=== PATIENT | female | born 1995 | race Caucasian/White ===

== ENCOUNTER → 2018-06-06 15:58 | Outpatient (CLI) | payer MEDICAID, SELFPAY ==
--- NOTE | 2018-06-06 16:03 | XR_ITS ---
XR hand RT min 3V HISTORY: Posttraumatic pain ITS.REASON: RT HAND PAIN ORDERING PHYSICIAN: Faustino Su MD PATIENT AGE: 22 years COMPARISON: None FINDINGS: Boxer's fracture involving the distal aspect of the fifth metacarpal. Mild anterior and radial angulation of the distal fracture fragment without significant displacement. IMPRESSION: Nondisplaced boxer's fracture fifth metacarpal
== END ==
PROVIDERS: PCP Family Medicine; Visit Provider Family Medicine
DX: M79.641 Pain in right hand (principal)
CPT/HCPCS: 73130

== ENCOUNTER → 2018-06-27 09:51 | Outpatient (CLI) | payer BC, MEDICAID, SELFPAY ==
--- NOTE | 2018-06-27 09:57 | XR_ITS ---
XR hand RT min 3V HISTORY: Follow-up fracture ITS.REASON: right hand boxer fracture ORDERING PHYSICIAN: Tim Valero MD PATIENT AGE: 22 years COMPARISON: 06/06/2018 FINDINGS: Fracture of the distal aspect of the fifth metacarpals once again noted with slight increase in radial angulation of the distal fracture fragment with no significant displacement. No callus formation apparent. IMPRESSION: Slight increase in radial angulation of the distal fracture fragment of the fifth metacarpal
== END ==
PROVIDERS: PCP Family Medicine; Visit Provider Orthopaedic Surgery
DX: S62.91XA Unspecified fracture of right hand, initial encounter for closed fracture (principal)
CPT/HCPCS: 73130

== ENCOUNTER → 2020-07-01 11:18 | Outpatient (CLI) | payer BC, SELFPAY ==
[2020-07-01 12:13] LABS: Basophils # 0.1 K/mm3 (0-0.2); Eosinophils # 0.1 K/mm3 (0.0-0.4); Eosinophils % 2.1 % (0.1-12.0); Hematocrit 44.6 % (37.0-47.0); Hemoglobin 14.6 g/dL (12.2-16.2); Lymphocytes # 2.5 K/mm3 (0.7-4.5); Lymphocytes % 36.9 % (10-50); Mean Corpuscular HGB Conc 32.8 g/dL (31.8-35.4); Mean Corpuscular Hemoglobin 29.8 pg (27.0-31.2); Mean Corpuscular Volume 90.9 fl (81-99); Mean Platelet Volume 10.4 fl (7.4-10.4); Monocytes # 0.3 K/mm3 (0.1-1.0); Monocytes % 4.6 % (1.7-9.3); Neutrophils # 3.8 K/mm3 (1.8-7.8); Neutrophils % 55.4 % (37.0-80.0); Platelet Count 190 K/mm3 (142-424); Red Blood Count 4.91 M/mm3 (4.20-5.40); Red Cell Distribution Width 13.5 % (11.5-17.5); White Blood Count 6.8 K/mm3 (4.8-10.8)
[2020-07-01 14:54] LABS: Strep Scrn Group A (Rapid) Negative (Negative)
== END ==
PROVIDERS: PCP Family Medicine; Visit Provider Nurse Practitioner
DX: Z03.818 Encounter for observation for suspected exposure to other biological agents ruled out (principal)
CPT/HCPCS: 36415; 85025; 87430; U0003

== ENCOUNTER 2020-08-12 17:40 | Emergency (ER) | payer BC, SELFPAY ==
[2020-08-12 17:56] VITALS: BP 108/64; PULSE 74; RESP 16; TEMP 37.1; O2SAT 98; BMI 19.8
--- NOTE | 2020-08-12 18:04 | HMH.EDUTC ---
[facility] [place] Disposition Clinical Impression: Encounter for laboratory testing for COVID-19 virus URI (upper respiratory infection) Qualifiers: URI type: unspecified URI Qualified Code(s): J06.9 - Acute upper respiratory infection, unspecified Disposition: Home, Self-Care Condition on Discharge: Good Instructions: Preventing the Spread of Coronavirus Discharge Instructions, DI for Sinusitis, Sinusitis Additional Instructions: *Monitor Temp, Over the counter Motrin or Tylenol as directed/as needed Tylenol every 4 hours and Motrin every 6 hours (as long as your family doctor has told you that you can take it) for fever or pain. and straight to ER if unable to lower temp less than 101.0 after medication given *Warm salt water gargles may help to soothe the throat *Throat Lozenges *Warm fluids like tea with honey may help to soothe the throat *Sleep elevated *Humidifier/Vaporizer *Flonase 2 sprays in each nostril daily but be aware that it may take 2-3 days before you notice improvement Follow up IMMEDIATELY for new or worsening symptoms or no Noticeable improvement over the next 48-72 hours. 911 for difficulty breathing or swallowing You were tested for today for COVID19 your test result should be back in the next 24-48 hours, you may call to the [facility] to see if your test results are back in the next 48 hours [phone] [facility] hours are 9am-9pm You was given a handout with instructions for Self Quarantine and Self isolation for while you wait on test results and what to do if they are positive If you are positive the Health Dept will be contacting you also Prescriptions: Fluticasone Propionate [Flonase 50mcg nasal spray 16gm] 1 spr NS DAILY #1 bottle Transmission Status: Pending to [facility] Azithromycin [Z-Wilton 250mg Tab] 250 mg PO DIRECTED #6 tab Transmission Status: Pending to [facility] Referrals: Faustino Su MD [Primary Care Provider] - As needed Forms: Work/School Release Time of Disposition: 18:20 Medical Decision Making - Dony Inquiry Pt receiving controlled substance: No Dony was queried for this patient: No Vital Signs: 08/12/20 17:56 Temperature 98.7 F Temperature Source Oral Pulse Rate [Right] 74 Respiratory Rate 16 Blood Pressure [Right Arm] 108/64 L Blood Pressure Mean [Right Arm] 78 Blood Pressure Source [Right Arm] Automatic Cuff Blood Pressure Position [Right Arm] Sitting 02 Sat by Pulse Oximetry 98 Oxygen Delivery Method Room Air - Lab Data Lab results reviewed: Yes: I reviewed the patient's lab results. Orders (Tests/Meds): ORDERS Category Date Time Status Covid-19 Nasal PCR Sendout [facility] 08/12/20 18:[address] [facility] [place] HPI - General Stated complaint: cough fever muscle pain sore throat Time Seen by Provider: 08/12/20 18:04 Mode of Arrival: Ambulatory Source of Information: Patient Limitations: No Limitations Description of Symptoms (Recalled from Triage Doc. by RN): pt advises she woke up this morning running a fever, body aches, headache, sore throat HEENT Symptoms (Recalled from RN notes): Yes (headache, sore throat, body aches) Resp Symptoms (Recalled from RN notes): No Skin Symptoms (Recalled from RN notes): No MS Symptoms (Recalled from RN notes): No Functional Status (Recalled from RN notes): na - History of Present Illness Provider Complaint: Patient state that she has been not feeling well today State that she is having body aches, chills, sinus pain and pressure, sore throat and pressure like feeling in her ears States that she has been having cough but not coughing anything up 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
[2020-08-12 18:21] LABS: UTC Influenza A Antigen Negative (Negative); UTC Influenza B Antigen Negative (Negative)
[2020-08-12 18:36] VITALS: BP 105/64; PULSE 65; RESP 16; TEMP 36.9; O2SAT 98
[2020-08-14 16:34] LABS: Covid-19 Nasal PCR Sendout Lex Positive
--- NOTE | 2020-08-14 17:14 | PC.NURSE ---
PATIENT NOTIFIED OF POSITIVE COVID RESULT AT THIS TIME
== END 2020-08-12 18:36 | disposition home or self-care (01) ==
PROVIDERS: Emergency Provider Nurse Practitioner; PCP Family Medicine
DX: U07.1 COVID-19 (principal); F17.210 Nicotine dependence, cigarettes, uncomplicated
CPT/HCPCS: 87804; 99201; U0004

== ENCOUNTER 2021-04-17 17:17 | Emergency (ER) | payer BC, SELFPAY ==
[2021-04-17 17:20] VITALS: BP 112/72; PULSE 81; RESP 21; TEMP 37; O2SAT 96; BMI 20.7
--- NOTE | 2021-04-17 17:55 | HMH.EDUTC ---
[facility] [place] Clinical Impression: Encounter for laboratory testing for COVID-19 virus, Viral upper respiratory illness Disposition: Home, Self-Care Condition on Discharge: Good Instructions: DI for COVID-19 (Suspected or Confirmed ), COVID-19: Protecting Yourself When You're at High Risk, DI for Viral Upper Respiratory Infection -- Adult Additional Instructions: covid swab was sent to lab, call later today for results. self isolate until test results are known to be negative No sign of a bacterial infection. Likely viral. Viruses can take 7-14 days to run their course. Nasal saline and bulb syringe or nose [place] to remove nasal drainage to help with nasal congestion. Hard to eat, drink, sleep with nasal congestion so important to keep this cleaned out. Monitor temp. Tylenol or Motrin as needed for pain or fever Encourage fluids, water, Gatorade, Powerade, Pedialyte if /toddler/child Warm salt water gargles Warm fluids Sore throat lozenges Sleep elevated Humidifier/vaporizer Follow-up immediately for new or worsening symptoms or no noticeable improvement over the next 48-72 hours. Referrals: Faustino Su MD [Primary Care Provider] - Time of Disposition: 18:07 Medical Decision Making - Dony Inquiry Pt receiving controlled substance: No Vital Signs: 04/17/21 17:20 Temperature 98.6 F Temperature Source Oral Pulse Rate [Right Brachial] 81 Respiratory Rate 21 Blood Pressure [Right Arm] 112/72 Blood Pressure Mean [Right Arm] 85 Blood Pressure Source [Right Arm] Automatic Cuff Blood Pressure Position [Right Arm] Sitting 02 Sat by Pulse Oximetry 96 Oxygen Delivery Method Room Air Orders (Tests/Meds): ORDERS Category Date Time Status Covid-19 Nasal PCR ([facility]) Routine Lab 04/17/21 17:34 [place] [facility] [place] - General Chief complaint: [facility] Stated complaint: Covid testW Symptoms Time Seen by Provider: 04/17/21 17:55 Mode of Arrival: Ambulatory Source of Information: Patient Limitations: No Limitations Description of Symptoms (Recalled from Triage Doc. by RN): PATIENT C/O SORE THROAT, HEADACHE, FEVER, DIARRHEA, NAUSEA, CHEST CONGESTION, AND COUGH X 2 DAYS HEENT Symptoms (Recalled from RN notes): Yes Resp Symptoms (Recalled from RN notes): Yes Skin Symptoms (Recalled from RN notes): No MS Symptoms (Recalled from RN notes): No Functional Status (Recalled from RN notes): WNL - History of Present Illness Provider Complaint: 25 yr old female presents for sore throat, clark,fever,diarrhea,nausea,chest congestion and cough for 2 days. pt states she had covid in aug and this feels the same. - Related Data Previous Rx's Medication Instructions Recorded Azithromycin [Z-Wilton 250mg Tab] 250 mg PO DIRECTED #6 tab 08/12/20 Fluticasone Propionate [Flonase 1 spr NS DAILY #1 bottle 08/12/20 50mcg nasal spray 16gm] Allergies Allergy/AdvReac Type Severity Reaction Status Date / Time No Known Allergies Allergy Verified 05/13/19 09:42 - Worker's Comp Is this a Worker's Comp case?: No [facility] History - Hepatitis A Screen Drug use history?: No High risk sexual behaviors?: No History of sexually transmitted infection?: No Currently employed?: No Childcare worker?: No Do you have indoor plumbing?: Yes Do you have electricity?: Yes Attestation statement:: This patient has been screened for Hepatitis A risk factors. I have reviewed the patient's past medical history: Yes Medical History: Denies:: Cancer, Diabetes Mellitus Type 1, Diabetes Mellitus Type 2, Hypertension, MRSA Laterality Cases: Bilateral: Tonsillectomy Amputation: No - Social History Smoking Status: Current every day smoker Tobacco Type: cigarettes # Packs/Day (cigarettes): 1 Alcohol Intake: never Substance Use Type: denies use Occupational Status: employed Housing: house Family Hx:: No significant family history ROS Obtained: Yes Systems reviewed as appropriate & no additional complaints
[2021-04-17 18:08] VITALS: BP 112/72; PULSE 81; RESP 21; TEMP 37; O2SAT 96
[2021-04-17 19:11] LABS: UTC Strep Screen (Rapid) Negative (Negative)
== END 2021-04-17 18:10 | disposition home or self-care (01) ==
PROVIDERS: Emergency Provider Nurse Practitioner Family; PCP Family Medicine
DX: Z20.822 Contact with and (suspected) exposure to COVID-19 (principal); F17.210 Nicotine dependence, cigarettes, uncomplicated
CPT/HCPCS: 87880; 99202; G0463; U0003

== ENCOUNTER 2021-05-23 15:36 | Emergency (ER) | payer BC, SELFPAY ==
[2021-05-23 16:50] VITALS: BP 96/68; PULSE 85; RESP 18; TEMP 36.5; O2SAT 100; BMI 19.6
--- NOTE | 2021-05-23 17:34 | HMH.EDUTC ---
[facility] [place] Clinical Impression: Cellulitis Qualifiers: Site of cellulitis: unspecified site Qualified Code(s): L03.90 - Cellulitis, unspecified Bee sting Qualifiers: Encounter type: initial encounter Injury intent: undetermined intent Qualified Code(s): T63.444A - Toxic effect of venom of bees, undetermined, initial encounter Disposition: Home, Self-Care Condition on Discharge: Good Instructions: How to Care for an Insect Bite or Sting, DI for Cellulitis -- Adult, DI for Insect Bites and Stings Additional Instructions: *Start antibiotic(s) immediately and be sure to take as ordered for the FULL length of time although you may be feeling better or start to see improvement in the next 24-48 hours *Monitor closely. Outlined redness so that you can monitor easier. Follow up immediately for new or worsening symptoms including but not limited to redness, swelling, streaking from site fever or chills. *Keep your hand elevated above the level of your heart to help with swelling *Never squeeze or pop these on your own. Seek immediate medical attention next time this occurs *Monitor Temp. Tylenol every 4 hours as needed and ibuprofen every 6 hours as needed (as long as your primary care doctor has told you that it is ok to take both. For fever, aches, pain. ER if no less that 101 despite Tylenol and ibuprofen Follow up with your family doctor/primary care physician in the next 48-72 hours if no improvement Prescriptions: cephALEXin [cephALEXin 500mg capsule*] 500 mg PO TID 7 Days #21 cap Transmission Status: Pending to [facility] # methylPREDNISolone [Medrol 4mg tab] 4 mg PO DIRECTED #21 tab Transmission Status: Pending to [facility] # Referrals: Faustino Su MD [Primary Care Provider] - As needed Time of Disposition: 18:08 Medical Decision Making - Dony Inquiry Pt receiving controlled substance: No Dony was queried for this patient: No Vital Signs: 05/23/21 16:50 Temperature 97.7 F Temperature Source Oral Pulse Rate [Right Brachial] 85 Respiratory Rate 18 Blood Pressure [Right Arm] 96/68 L Blood Pressure Mean [Right Arm] 77 Blood Pressure Source [Right Arm] Automatic Cuff Blood Pressure Position [Right Arm] Sitting 02 Sat by Pulse Oximetry 100 Oxygen Delivery Method Room Air Orders (Tests/Meds): ED MEDICATIONS Discontinued Medications Generic Name Dose Route Start Last Admin Trade Name Sole PRN Reason Stop Dose Admin Famotidine 20 mg 05/23/21 17:36 05/23/21 17:52 Famotidine 20mg Tablet PO 05/23/21 17:37 20 mg ONCE ONE Administration Loratadine 10 mg 05/23/21 17:37 05/23/21 17:52 Loratadine 10mg Tablet PO 05/23/21 17:38 10 mg ONCE ONE Administration Methylprednisolone Sodium Succinate 125 mg 05/23/21 17:36 05/23/21 17:52 Methylprednisolone Sod Succ 125mg Vial IM 05/23/21 17:37 125 mg ONCE ONE Administration Medical Decision Narrative: Patient denies State that last period few days ago Patient hand much improved after medication however redness and warmth still remains and appears like that commonly seen with cellulitis [facility] [place] HPI - General Stated complaint: bee sting R hand 05/21 Time Seen by Provider: 05/23/21 17:34 Mode of Arrival: Ambulatory Source of Information: Patient Limitations: No Limitations Description of Symptoms (Recalled from Triage Doc. by RN): PATIENT C/O BEE STING TO HAND HEENT Symptoms (Recalled from RN notes): No Resp Symptoms (Recalled from RN notes): No Skin Symptoms (Recalled from RN notes): Yes MS Symptoms (Recalled from RN notes): No Functional Status (Recalled from RN notes): WNL - History of Present Illness Provider Complaint: Patient states that she was stung a couple days ago State that she has continued to have swelling and warmth to her hand States that she has been taking Bendaryl but not helping much States that she wasnt sure if she maybe having an infection or if she is havin
[2021-05-23 18:11] VITALS: BP 96/68; PULSE 85; RESP 18; TEMP 36.5; O2SAT 100
== END 2021-05-23 18:13 | disposition home or self-care (01) ==
PROVIDERS: Emergency Provider Nurse Practitioner; PCP Family Medicine
DX: L03.113 Cellulitis of right upper limb (principal); T63.441A Toxic effect of venom of bees, accidental (unintentional), initial encounter; F17.210 Nicotine dependence, cigarettes, uncomplicated
CPT/HCPCS: 96372; 99202; G0463

== ENCOUNTER → 2022-01-03 14:56 | Outpatient (CLI) | payer OTHER, MEDICAID, SELFPAY ==
[2022-01-03 16:16] LABS: Basophils # 0.1 K/mm3 (0-0.2); Basophils % 0.6 % (0.1-2.0); Eosinophils # 0.1 K/mm3 (0.0-0.4); Eosinophils % 0.9 % (0.1-12.0); Hematocrit 34.9 % (37.0-47.0); Hemoglobin 11.4 g/dL (12.2-16.2); Lymphocytes # 1.3 K/mm3 (0.7-4.5); Lymphocytes % 16.4 % (10-50); Mean Corpuscular HGB Conc 32.6 g/dL (31.8-35.4); Mean Corpuscular Hemoglobin 28.7 pg (27.0-31.2); Mean Platelet Volume 9.8 fl (7.4-10.4); Monocytes # 0.4 K/mm3 (0.1-1.0); Monocytes % 5.4 % (1.7-9.3); Neutrophils # 6.1 K/mm3 (1.8-7.8); Neutrophils % 76.8 % (37.0-80.0); Platelet Count 209 K/mm3 (142-424); Red Blood Count 3.96 M/mm3 (4.20-5.40); Red Cell Distribution Width 13.6 % (11.5-17.5)
[2022-01-05 08:21] LABS: HIV Screen 4th Generation wRfx Non Reactive (Non Reactive)
[2022-01-05 09:17] LABS: HSV 2 IgG, Type Spec <0.91 index (0.00-0.90)
[2022-01-05 10:14] LABS: Hepatitis B Surface Antigen Negative (Negative); Hepatitis C Antibody 0.2 s/co ratio (0.0-0.9)
[2022-01-05 13:30] LABS: Rapid Plasma Reagin Ab Titer Non Reactive (NonRea<1:1)
== END ==
PROVIDERS: Visit Provider Obstetrics & Gynecology
DX: Z34.90 Encounter for supervision of normal pregnancy, unspecified, unspecified trimester (principal)
CPT/HCPCS: 36415; 85025; 86592; 86695; 86703; 86762; 86790; 86850; 87340; 87380; G0432

== ENCOUNTER → 2022-02-01 12:07 | Outpatient (CLI) | payer OTHER, MEDICAID, SELFPAY | PROVIDERS: Visit Provider Obstetrics & Gynecology | DX: Z31.430 Encounter of female for testing for genetic disease carrier status for procreative management (principal); Z36.0 Encounter for antenatal screening for chromosomal anomalies; O28.3 Abnormal ultrasonic finding on antenatal screening of mother | CPT/HCPCS: 36415 ==

== ENCOUNTER 2022-02-27 16:35 | Emergency (ER) | payer OTHER, MEDICAID, SELFPAY ==
[2022-02-27 18:20] VITALS: BP 100/67; PULSE 96; RESP 18; TEMP 36.7; O2SAT 100; BMI 20.1
--- NOTE | 2022-02-27 19:00 | HMH.EDUTC ---
[facility] [place] Disposition Clinical Impression: Sinusitis Qualifiers: Sinusitis location: unspecified location Chronicity: unspecified Qualified Code(s): J32.9 - Chronic sinusitis, unspecified Disposition: Home, Self-Care Condition on Discharge: Good Instructions: Sinusitis, DI for Sinusitis Additional Instructions: *Monitor Temp, Over the counter Motrin or Tylenol as directed/as needed Tylenol every 4 hours and Motrin every 6 hours (as long as your family doctor has told you that you can take it) for fever or pain. and straight to ER if unable to lower temp less than 101.0 after medication given *Warm salt water gargles may help to soothe the throat *Throat Lozenges *Warm fluids like tea with honey may help to soothe the throat *Sleep elevated *Humidifier/Vaporizer Follow up IMMEDIATELY for new or worsening symptoms or no Noticeable improvement over the next 48-72 hours. 911 for difficulty breathing or swallowing You were tested for today for COVID19 your test result should be back in the next 24-48 hours, you may check your results on the [facility] Make sure to take your Vitamins Vit. C Vit D and Zinc if you can take them Prescriptions: Azithromycin [Z-Wilton 250mg Tab] 250 mg PO DIRECTED #6 tab Transmission Status: Pending to [facility] #[id number] Referrals: Faustino Su MD [Primary Care Provider] - As needed Forms: Work/School Release Medical Decision Making - Dony Inquiry Pt receiving controlled substance: No Dony was queried for this patient: No Vital Signs: 02/27/22 18:20 Temperature 98.0 F Temperature Source Oral Pulse Rate [Right Brachial] 96 H Respiratory Rate 18 Blood Pressure [Right Arm] 100/67 L Blood Pressure Mean [Right Arm] 78 Blood Pressure Source [Right Arm] Automatic Cuff Blood Pressure Position [Right Arm] Sitting 02 Sat by Pulse Oximetry 100 Oxygen Delivery Method Room Air Medical Decision Narrative: medication verified by pharmacy that it is safe for use in [facility] [place] HPI - General Stated complaint: cough, fever, runny nose, 16 wks preg Time Seen by Provider: 02/27/22 19:01 Mode of Arrival: Ambulatory Source of Information: Patient Limitations: No Limitations Description of Symptoms (Recalled from Triage Doc. by RN): PATIENT C/O FEVER, CHILLS, COUGH, RUNNY NOSE, AND VOMITING SINCE SUNDAY HEENT Symptoms (Recalled from RN notes): Yes Resp Symptoms (Recalled from RN notes): Yes Skin Symptoms (Recalled from RN notes): No MS Symptoms (Recalled from RN notes): No Functional Status (Recalled from RN notes): WNL - History of Present Illness Provider Complaint: Patient state that she has been having sinus pain and pressure for close to a week States that on Sunday she started feeling achy, her drainage turned to yellowish green, cough and vomited a few times States that she is 16wks OB and thinks she may have a sinus infection but wanted to get checked out - Related Data Home Medications Medication Instructions Recorded Confirmed prenat.vits,pillo,wlk-hmst-mkfme 1 tab PO DAILY 01/04/22 02/01/22 Previous Rx's Medication Instructions Recorded promethazine 12.5 mg tablet 12.5 mg PO Q4-6H PRN #30 tab 01/06/22 doxylamine succinate 25 mg tablet 12.5 mg PO HS #30 tab 02/01/22 pyridoxine (vitamin B6) 25 mg 25 mg PO TID #90 tab 02/01/22 tablet Azithromycin [Z-Wilton 250mg Tab] 250 mg PO DIRECTED #6 tab 02/27/22 Allergies Allergy/AdvReac Type Severity Reaction Status Date / Time No Known Allergies Allergy Verified 02/01/22 11:39 - Worker's Comp Is this a Worker's Comp case?: No [facility] History - Hepatitis A Screen Attestation statement:: This patient has been screened for Hepatitis A risk factors. I have reviewed the patient's past medical history: Yes Medical History: Denies:: Cancer, Diabetes Mellitus Type 1, Diabetes Mellitus Type 2, Hypertension, MRSA Laterality Cases: Bilateral: Tonsillectomy Other Surgeries: Yes: No Previ
[2022-02-27 19:15] VITALS: BP 100/67; PULSE 96; RESP 18; TEMP 36.7; O2SAT 100
[2022-02-27 19:21] LABS: Adenovirus,PCR Not Detected (NotDetected); Coronavirus 229E Not Detected (NotDetected); Coronavirus NL63 Not Detected (NotDetected); Coronavirus OC43 Not Detected (NotDetected); Coronovirus HKU1,PCR Not Detected (NotDetected); Human Metapneumovirus Not Detected (NotDetected); Influenza A, PCR Not Detected (NotDetected); Influenza AH1, 2009 Not Detected (NotDetected); Influenza AH1, PCR Not Detected (NotDetected); Rhinovirus/Enterovirus Not Detected (NotDetected)
[2022-02-27 19:22] LABS: Bordetella Pertussis Not Detected (NotDetected); Chlamydophila Pneumoniae, PCR Not Detected (NotDetected); Influenza AH3,PCR Not Detected (NotDetected); Influenza B, PCR Not Detected (NotDetected); Mycoplasma Pneumoniae, PCR Not Detected (NotDetected); Parainfluenza 1, PCR Not Detected (NotDetected); Parainfluenza 2, PCR Not Detected (NotDetected); Parainfluenza 3, PCR Not Detected (NotDetected); Parainfluenza 4, PCR Not Detected (NotDetected); Respiratory Syncytial Virus Not Detected (NotDetected)
[2022-02-27 21:32] LABS: Coronavirus 19, PCR Detected (NotDetected)
== END 2022-02-27 19:20 | disposition home or self-care (01) ==
PROVIDERS: Emergency Provider Nurse Practitioner; PCP Family Medicine
DX: O98.511 Other viral diseases complicating pregnancy, first trimester (principal); U07.1 COVID-19; O21.9 Vomiting of pregnancy, unspecified; O99.511 Diseases of the respiratory system complicating pregnancy, first trimester; R51.9 Headache, unspecified; J32.9 Chronic sinusitis, unspecified; O99.332 Smoking (tobacco) complicating pregnancy, second trimester; F17.210 Nicotine dependence, cigarettes, uncomplicated; Z3A.16 16 weeks gestation of pregnancy
CPT/HCPCS: 87581; 87632; 87798; 99213; C9803; G0463; U0003; U0005

== ENCOUNTER 2022-03-14 07:31 | Emergency (ER) | payer OTHER, MEDICAID, SELFPAY ==
[2022-03-14 07:28] VITALS: BP 101/70; PULSE 85; RESP 15; TEMP 36.7; O2SAT 97; BMI 20.9
--- NOTE | 2022-03-14 07:49 | PC.NURSE ---
applied seizure pads to stretcher
--- NOTE | 2022-03-14 07:50 | PC.NURSE ---
heart tones noted at 152 bpm
[2022-03-14 07:58] VITALS: BP 102/63; PULSE 88; O2SAT 100
[2022-03-14 08:02] LABS: Basophils # 0.1 K/mm3 (0-0.2); Basophils % 0.6 % (0.1-2.0); Eosinophils # 0.1 K/mm3 (0.0-0.4); Eosinophils % 1.3 % (0.1-12.0); Hematocrit 32.1 % (37.0-47.0); Hemoglobin 11.3 g/dL (12.2-16.2); Lymphocytes # 2.1 K/mm3 (0.7-4.5); Lymphocytes % 22.2 % (10-50); Mean Corpuscular HGB Conc 35.2 g/dL (31.8-35.4); Mean Corpuscular Volume 85.2 fl (81-99); Mean Platelet Volume 9.7 fl (7.4-10.4); Monocytes # 0.4 K/mm3 (0.1-1.0); Monocytes % 4.3 % (1.7-9.3); Neutrophils # 6.7 K/mm3 (1.8-7.8); Neutrophils % 71.6 % (37.0-80.0); Platelet Count 220 K/mm3 (142-424); Red Blood Count 3.76 M/mm3 (4.20-5.40); Red Cell Distribution Width 13.6 % (11.5-17.5); White Blood Count 9.4 K/mm3 (4.8-10.8)
--- NOTE | 2022-03-14 08:04 | HMH.EDSEIZ ---
ED Disposition Clinical Impression: Syncope Qualifiers: Syncope type: unspecified Qualified Code(s): R55 - Syncope and collapse Qualifiers: Weeks of gestation: 17 weeks Qualified Code(s): Z3A.17 - 17 weeks gestation of Disposition: Home, Self-Care Condition on Discharge: Good Instructions: Seizure Disorder -- Adult, DI for Syncope in Adults (Fainting), Fainting Additional Instructions: Drink plenty of fluids daily. Continue taking all medications as prescribed. Avoid getting up quickly. Return to the emergency department immediately if you feel worse in any way. Referrals: Faustino Su MD [Primary Care Provider] - - Critical Care Critical Care Time: No Attestation: On 03/14/22, the high probability of a clinically significant, sudden or life threatening deterioration of the following system(s) required my full and direct attention, intervention and personal management. The time I documented below is in addition to time spent performing reported procedures but includes the following listed in this critical care notation. Medical Decision Making - Dony Inquiry Pt receiving controlled substance: No Vital Signs: 03/14/22 07:28 03/14/22 07:58 Temperature 98.0 F Temperature Source Oral Pulse Rate 88 Pulse Rate [Right Radial] 85 Respiratory Rate 15 Blood Pressure 102/63 L Blood Pressure [Right Arm] 101/70 L Blood Pressure Mean 70 Blood Pressure Mean [Right Arm] 80 Blood Pressure Source [Right Arm] Automatic Cuff Blood Pressure Position [Right Arm] Sitting 02 Sat by Pulse Oximetry 97 100 - Lab Data Lab results reviewed: Yes: I reviewed the patient's lab results. Lab Results 03/14/22 07:30: WBC 9.4, RBC 3.76 L, Hgb 11.3 L, Hct 32.1 L, MCV 85.2, MCH 30.0, MCHC 35.2, RDW 13.6, Plt Count 220, MPV 9.7, Neut % (Auto) 71.6, Lymph % (Auto) 22.2, [place] % (Auto) 4.3, Eos % (Auto) 1.3, Baso % (Auto) 0.6, Neut # (Auto) 6.7, Lymph # (Auto) 2.1, [place] # (Auto) 0.4, Eos # (Auto) 0.1, Baso # (Auto) 0.1 03/14/22 07:30: Sodium 135 L, Potassium 3.2 L, Chloride 105, Carbon Dioxide 22, Anion Gap 11.2, BUN 4 L, Creatinine 0.40 L, Estimated Creat Clear 153, Estimated GFR 193, Est GFR ( Amer) 233, Glucose 120 H, Calcium 8.8, Total Bilirubin < 0.1 L, AST 36, ALT 28, Alkaline Phosphatase 85, Total Protein 6.3, Albumin 3.6, Globulin 2.7, Albumin/Globulin Ratio 1.3 03/14/22 07:30: Serum HCG, Qual Positive Result diagrams: 03/14/22 07:30 03/14/22 07:30 Orders (Tests/Meds): ED MEDICATIONS Generic Name Dose Route Start Last Admin Trade Name Freq PRN Reason Stop Dose Admin Sodium Chloride 1,000 mls @ 999 mls/hr 03/14/22 07:55 03/14/22 07:55 Sod Chlor 0.9% 1000ml Bag IV 03/14/22 08:55 999 mls/hr .Q1H1M ONE Administration Sodium Chloride 10 ml 03/14/22 07:53 Sodium Chloride 0.9% 10ml Flush Syringe IV 04/13/22 07:52 NEEDED PRN Maintain IV Site ORDERS Category Date Time Status Urinalysis and Microscopic Stat Lab 03/14/22 08:15 Received Medical Decision Narrative: The patient's history and physical examination are more consistent with a syncopal episode than a seizure. The patient is . She felt lightheaded prior to the episode. There were no postictal symptoms. The patient is able to ambulate in the emergency department now after IV fluids without any lightheadedness. The patient's laboratory work-up was unremarkable. I feel that the patient can be safely discharged home at this time. Seizures HPI - General Chief Complaint: Seizure Stated Complaint: Seizure Time Seen by Provider: 03/14/22 08:04 Mode of Arrival: EMS Limitations: No Limitations Description of Symptoms (Recalled from ER Triage Doc. by RN): Pt to ED after reportedly having a seizure-like episode as soon as she got to work this AM. Pt advises she had another episode on Sunday as well and that these are a new onset. Advises that she is 17 weeks . A&O at this time.
[2022-03-14 08:06] LABS: Alanine Aminotransferase 28 U/L (12-78); Albumin Level 3.6 g/dl (3.5-5.0); Albumin/Globulin Ratio 1.3 (1.1-1.8); Alkaline Phosphatase 85 U/L (38-126); Anion Gap 11.2 mEq/L (5-15); Aspartate Amino Transferase 36 U/L (14-36); Blood Urea Nitrogen 4 mg/dl (7-17); Calcium 8.8 mg/dl (8.4-10.2); Carbon Dioxide 22 mmol/L (22.0-30.0); Chloride 105 mmol/L (98-107); Creatinine Clearance Estimated 153 mL/min (50-200); Estimated Glomerular Filt Rate 193 ml/min (>60); GFR (African American) 233 ML/MIN (>60); Globulin 2.7 g/dL (1.3-3.2); Glucose 120 mg/dl (74-100); Potassium 3.2 mmoL/L (3.5-5.1); Sodium 135 mmol/L (136-145); Total Protein,Serum 6.3 g/dl (6.3-8.2)
[2022-03-14 08:13] LABS: Bilirubin,Total < 0.1 mg/dl (0.2-1.3)
--- NOTE | 2022-03-14 08:18 | PC.NURSE ---
PT REPORTS BEING HUNGRY, OK'D REGULAR DIET FOR BREAKFAST. DIETARY NOTIFIED
[2022-03-14 08:19] LABS: HCG Qualitative, Serum Positive (Negative)
[2022-03-14 08:20] LABS: Microscopic, Urine URINE MICROSCOPIC (MICROSCOPIC)
[2022-03-14 08:22] LABS: Appearance,Urine CLEAR (Clear); Bilirubin,Urine Negative (Negative); Blood, Urine Negative (Negative); Color,Urine YELLOW (Yellow); Glucose,Urine (UA) Negative (Negative); Ketones,Urine Negative (Negative); Leukocyte Esterase,Urine 1+ (Negative); Nitrate,Urine Negative (Negative); Protein,Urine TRACE (Negative); Specific Gravity, Urine >= 1.030 (1.005-1.030); Urobilinogen,Urine 0.2 EU/dl (0.2)
--- NOTE | 2022-03-14 08:39 | PC.NURSE ---
PT RESTING WITHOUT NEEDS AT THIS TIME. TEXTING ON PHONE
[2022-03-14 08:44] VITALS: BP 105/68; PULSE 85; RESP 18; O2SAT 100
[2022-03-14 08:47] LABS: Bacteria,Urine 3+ /lpf; Mucus,Urine 1+ /lpf; RBC,Urine Occasional #/hpf (0-3); Squamous Epithelial Cell,Urine 20-50 #/hpf (0-5); WBC,Urine 20-50 #/hpf (0-3)
--- NOTE | 2022-03-14 08:51 | PC.NURSE ---
BREAKFAST TRAY SET-UP
--- NOTE | 2022-03-14 08:51 | PC.NURSE ---
pt recieved breakfast tray
[2022-03-14 08:58] VITALS: BP 120/69; PULSE 97; RESP 18
--- NOTE | 2022-03-14 09:14 | PC.NURSE ---
Pt updated on plan of care. Waiting for IV fluids to finish infusing and pt will be discharged
--- NOTE | 2022-03-14 09:22 | PC.NURSE ---
Pt states that she is calling her mother to come pick her up
[2022-03-14 09:28] VITALS: BP 106/63; PULSE 88; RESP 18
[2022-03-14 09:38] VITALS: BP 106/63; PULSE 88; RESP 16; TEMP 36.7; O2SAT 100
== END 2022-03-14 09:45 | disposition home or self-care (01) ==
PROVIDERS: Emergency Provider Emergency Medicine; PCP Family Medicine
DX: O26.892 Other specified pregnancy related conditions, second trimester (principal); R55 Syncope and collapse; Z3A.17 17 weeks gestation of pregnancy; Z72.0 Tobacco use
CPT/HCPCS: 80053; 81001; 84703; 85025; 87086; 96360; 99284

== ENCOUNTER 2022-03-22 10:22 | Outpatient (CLI) | payer OTHER, MEDICAID, SELFPAY ==
[2022-03-22 10:45] VITALS: BMI 20.9
[2022-03-22 11:07] VITALS: BP 110/73; PULSE 89; RESP 17; TEMP 36.8; O2SAT 100; BMI 20.9
[2022-03-22 11:25] LABS: Microscopic, Urine URINE MICROSCOPIC (MICROSCOPIC)
[2022-03-22 11:27] LABS: Appearance,Urine CLEAR (Clear); Bilirubin,Urine Negative (Negative); Blood, Urine Negative (Negative); Color,Urine YELLOW (Yellow); Glucose,Urine (UA) Negative (Negative); Ketones,Urine Negative (Negative); Leukocyte Esterase,Urine Negative (Negative); Nitrate,Urine Negative (Negative); Protein,Urine Negative (Negative)
[2022-03-22 11:38] LABS: Bacteria,Urine Trace /lpf; WBC,Urine Occasional #/hpf (0-3)
[2022-03-22 11:39] LABS: Amphetamine/Metha Screen,Urine Negative ng/ml (<1000); Benzodiazepines Screen,Urine Negative ng/ml (<200)
[2022-03-22 11:40] LABS: Barbiturates Screen,Urine Negative ng/ml (<200)
[2022-03-22 11:41] LABS: Cannabinoid Screen,Urine Negative ng/ml (<50); Cocaine Screen,Urine Negative ng/ml (<300)
[2022-03-22 11:42] LABS: Methadone Screen,Urine Negative ng/ml (<300); Opiate Screen,Urine Negative ng/ml (<300)
[2022-03-22 11:43] LABS: Phencyclidine Screen,Urine Negative ng/ml (<25)
== END 2022-03-22 12:24 | disposition home or self-care (01) ==
LOC: OBOUT 10:30 → OB 10:30
PROVIDERS: PCP Family Medicine; Visit Provider Obstetrics & Gynecology
DX: O26.892 Other specified pregnancy related conditions, second trimester (principal); Z3A.18 18 weeks gestation of pregnancy; O47.00 False labor before 37 completed weeks of gestation, unspecified trimester
CPT/HCPCS: 80305; 81001; 96365; G0463

== ENCOUNTER → 2022-04-11 11:37 | Outpatient (CLI) | payer OTHER, MEDICAID, SELFPAY ==
[2022-04-11 12:33] LABS: Basophils # 0.1 K/mm3 (0-0.2); Basophils % 0.6 % (0.1-2.0); Eosinophils # 0.2 K/mm3 (0.0-0.4); Eosinophils % 1.2 % (0.1-12.0); Hematocrit 32.8 % (37.0-47.0); Hemoglobin 10.7 g/dL (12.2-16.2); Lymphocytes # 2.4 K/mm3 (0.7-4.5); Lymphocytes % 17.8 % (10-50); Mean Corpuscular HGB Conc 32.7 g/dL (31.8-35.4); Mean Corpuscular Hemoglobin 30.3 pg (27.0-31.2); Mean Corpuscular Volume 92.5 fl (81-99); Monocytes # 0.6 K/mm3 (0.1-1.0); Monocytes % 4.8 % (1.7-9.3); Neutrophils % 75.6 % (37.0-80.0); Platelet Count 235 K/mm3 (142-424); Red Blood Count 3.55 M/mm3 (4.20-5.40); Red Cell Distribution Width 14.1 % (11.5-17.5); White Blood Count 13.2 K/mm3 (4.8-10.8)
[2022-04-11 12:41] LABS: Alanine Aminotransferase 15 U/L (12-78); Albumin Level 3.5 g/dl (3.5-5.0); Alkaline Phosphatase 103 U/L (38-126); Anion Gap 8.2 mEq/L (5-15); Aspartate Amino Transferase 24 U/L (14-36); Bilirubin,Total < 0.1 mg/dl (0.2-1.3); Blood Urea Nitrogen 5 mg/dl (7-17); Calcium 8.9 mg/dl (8.4-10.2); Carbon Dioxide 23 mmol/L (22.0-30.0); Chloride 106 mmol/L (98-107); Estimated Glomerular Filt Rate 193 ml/min (>60); GFR (African American) 233 ML/MIN (>60); Glucose 83 mg/dl (74-100); Potassium 4.2 mmoL/L (3.5-5.1); Sodium 133 mmol/L (136-145); Total Protein,Serum 6.1 g/dl (6.3-8.2)
[2022-04-11 12:55] LABS: T4 (Thyroxine) 18.2 ug/dl (5.53-11.0)
[2022-04-11 13:09] LABS: Bilirubin,Indirect 0.1 mg/dL (0.0-0.9); Thyroid Stimulating Hormone 1.47 uIU/mL (0.465-4.68)
[2022-04-11 13:25] LABS: Free Thyroxine Index 3.5 ug/dL (5.93-13.13); Triiodothryronine (T3) Uptake 19 % (23.5-40.5)
== END ==
PROVIDERS: PCP Family Medicine; Visit Provider Physician Assistant
DX: R00.2 Palpitations (principal); R55 Syncope and collapse; Z3A.20 20 weeks gestation of pregnancy; F17.200 Nicotine dependence, unspecified, uncomplicated
CPT/HCPCS: 36415; 80048; 80076; 84436; 84443; 84479; 85025; 93270

== ENCOUNTER → 2022-05-25 07:57 | Outpatient (CLI) | payer MEDICAID, SELFPAY ==
[2022-05-25 08:18] LABS: Basophils # 0.1 K/mm3 (0-0.2); Basophils % 0.8 % (0.1-2.0); Eosinophils # 0.2 K/mm3 (0.0-0.4); Eosinophils % 1.4 % (0.1-12.0); Hematocrit 33.5 % (37.0-47.0); Hemoglobin 11.2 g/dL (12.2-16.2); Lymphocytes # 2.5 K/mm3 (0.7-4.5); Lymphocytes % 14.6 % (10-50); Mean Corpuscular HGB Conc 33.4 g/dL (31.8-35.4); Mean Corpuscular Hemoglobin 30.3 pg (27.0-31.2); Mean Corpuscular Volume 90.7 fl (81-99); Mean Platelet Volume 10.7 fl (7.4-10.4); Monocytes # 0.8 K/mm3 (0.1-1.0); Monocytes % 4.4 % (1.7-9.3); Neutrophils # 13.7 K/mm3 (1.8-7.8); Neutrophils % 78.8 % (37.0-80.0); Platelet Count 249 K/mm3 (142-424); Red Cell Distribution Width 13.9 % (11.5-17.5); White Blood Count 17.3 K/mm3 (4.8-10.8)
[2022-05-25 08:21] LABS: MANUAL DIFFERENTIAL MANUAL DIFFERENTIAL (MANUAL DIFF)
[2022-05-25 08:37] LABS: Glucose,Fasting 88 mg/dl (74-100)
[2022-05-25 08:42] LABS: Eosinophils % 2 % (0-3); Lymphocytes % 31 % (10-50); Monocytes % 2 % (2-9); Neutrophils % 65 % (42-76); Platelet Estimate Normal; RBC Morphology Normal; Total Cells Counted 100
[2022-05-25 09:47] LABS: Glucose 1 Hour 154 mg/dL (74-100)
== END ==
PROVIDERS: PCP Family Medicine; Visit Provider Obstetrics & Gynecology
DX: Z34.90 Encounter for supervision of normal pregnancy, unspecified, unspecified trimester (principal); Z3A.22 22 weeks gestation of pregnancy
CPT/HCPCS: 36415; 82951; 85007; 85025

== ENCOUNTER 2022-05-30 07:27 | Outpatient (CLI) | payer OTHER, MEDICAID, SELFPAY ==
[2022-05-30 07:58] VITALS: BP 106/69; PULSE 87; RESP 19; TEMP 36.7; O2SAT 100; BMI 22.8
[2022-05-30 08:09] LABS: Microscopic, Urine URINE MICROSCOPIC (MICROSCOPIC)
[2022-05-30 08:11] LABS: Appearance,Urine CLEAR (Clear); Bilirubin,Urine Negative (Negative); Blood, Urine Negative (Negative); Color,Urine YELLOW (Yellow); Glucose,Urine (UA) Negative (Negative); Ketones,Urine Negative (Negative); Leukocyte Esterase,Urine TRACE (Negative); Nitrate,Urine Negative (Negative); Protein,Urine Negative (Negative)
[2022-05-30 08:22] LABS: Squamous Epithelial Cell,Urine Occasional #/hpf (0-5)
[2022-05-30 08:23] LABS: Barbiturates Screen,Urine Negative ng/ml (<200); Benzodiazepines Screen,Urine Negative ng/ml (<200)
[2022-05-30 08:24] LABS: Amphetamine/Metha Screen,Urine Negative ng/ml (<1000)
[2022-05-30 08:25] LABS: Cocaine Screen,Urine Negative ng/ml (<300); Methadone Screen,Urine Negative ng/ml (<300)
[2022-05-30 08:26] LABS: Cannabinoid Screen,Urine Negative ng/ml (<50); Opiate Screen,Urine Negative ng/ml (<300)
[2022-05-30 08:27] LABS: Phencyclidine Screen,Urine Negative ng/ml (<25)
--- NOTE | 2022-05-30 09:17 | US_ITS ---
FINAL REPORT CLINICAL HISTORY: Cervical length measuring 2.2-2.6 cm; funneling at cervical os, measuring 9 x 6 mm; I spoke to the OB with a preliminary report, patient is following up with high risk doctor FINDINGS: US TRANSVAGINAL Limited sonographic images were obtained to evaluate the cervix. The cervix measures 2.6 cm. There is mild funneling of the cervical loss at 9 mm. This is more V shaped than U shaped. IMPRESSION: Mild funneling of the cervical loss. Dr. Sandy was notified of these findings by the health information technologist. Reviewed, Interpreted and Dictated by Randell Lassiter MD Transcribed by Sloan Cornejo Authenticated and [facility]
== END 2022-05-30 10:30 | disposition home or self-care (01) ==
LOC: OBOUT 07:30 → OB 07:33
PROVIDERS: Obstetrics & Gynecology; PCP Family Medicine; Visit Provider Obstetrics & Gynecology
DX: O26.893 Other specified pregnancy related conditions, third trimester (principal); Z3A.28 28 weeks gestation of pregnancy; M54.50 Low back pain, unspecified; R10.2 Pelvic and perineal pain
CPT/HCPCS: 59025; 76817; 80305; 81001; 96365; G0463

== ENCOUNTER → 2022-06-03 08:19 | Outpatient (CLI) | payer OTHER, MEDICAID, SELFPAY ==
[2022-06-03 08:59] LABS: Glucose,Fasting 84 mg/dl (74-100)
[2022-06-03 10:06] LABS: Glucose 1 Hour 141 mg/dL (74-100)
[2022-06-03 11:14] LABS: Glucose 2 Hour 154 mg/dL (74-100)
[2022-06-03 12:00] LABS: Glucose 3 Hour 142 mg/dL (74-100)
== END ==
PROVIDERS: PCP Family Medicine; Visit Provider Obstetrics & Gynecology
DX: R73.09 Other abnormal glucose (principal)
CPT/HCPCS: 36415; 82951

== ENCOUNTER → 2022-06-14 11:36 | Outpatient (CLI) | payer OTHER, MEDICAID, SELFPAY ==
[2022-06-14 11:37] LABS: Fetal Fibronectin (Rapid) Negative (Negative)
== END ==
PROVIDERS: PCP Obstetrics & Gynecology; Visit Provider Obstetrics & Gynecology
DX: Z34.90 Encounter for supervision of normal pregnancy, unspecified, unspecified trimester (principal)
CPT/HCPCS: 82731

== ENCOUNTER 2022-07-07 23:55 | Inpatient (IN) | payer OTHER, MEDICAID, SELFPAY ==
[2022-07-07 22:43] VITALS: BMI 24.6
[2022-07-07 22:45] VITALS: BP 133/95; PULSE 90; RESP 18; TEMP 36.7; O2SAT 100; BMI 24.6
[2022-07-07 23:27] LABS: Fetal Membrane Rupture (Rapid) Negative (Negative)
[2022-07-07 23:45] LABS: Microscopic, Urine URINE MICROSCOPIC (MICROSCOPIC)
[2022-07-07 23:59] LABS: Appearance,Urine CLEAR (Clear); Bilirubin,Urine Negative (Negative); Blood, Urine 3+ (Negative); Color,Urine YELLOW (Yellow); Glucose,Urine (UA) Negative (Negative); Ketones,Urine Negative (Negative); Leukocyte Esterase,Urine Negative (Negative); Nitrate,Urine Negative (Negative); PH,Urine 6.5 (5.0-8.5); Protein,Urine Negative (Negative); Specific Gravity, Urine <= 1.005 (1.005-1.030); Urobilinogen,Urine 0.2 EU/dl (0.2)
[2022-07-08 00:03] LABS: Basophils # 0.1 K/mm3 (0-0.2); Basophils % 0.6 % (0.1-2.0); Eosinophils # 0.2 K/mm3 (0.0-0.4); Eosinophils % 1.2 % (0.1-12.0); Hematocrit 29.9 % (37.0-47.0); Hemoglobin 9.6 g/dL (12.2-16.2); Lymphocytes # 3.5 K/mm3 (0.7-4.5); Lymphocytes % 21.1 % (10-50); Mean Corpuscular Hemoglobin 26.1 pg (27.0-31.2); Mean Corpuscular Volume 81.5 fl (81-99); Monocytes # 0.9 K/mm3 (0.1-1.0); Monocytes % 5.2 % (1.7-9.3); Neutrophils # 12.1 K/mm3 (1.8-7.8); Platelet Count 241 K/mm3 (142-424); Red Blood Count 3.68 M/mm3 (4.20-5.40); Red Cell Distribution Width 14.9 % (11.5-17.5); White Blood Count 16.8 K/mm3 (4.8-10.8)
[2022-07-08 00:09] LABS: Coronavirus 19, PCR Not Detected (NotDetected); Influenza A, PCR Not Detected (NotDetected); Influenza B, PCR Not Detected (NotDetected)
[2022-07-08 00:09] LABS: MANUAL DIFFERENTIAL MANUAL DIFFERENTIAL (MANUAL DIFF)
[2022-07-08 00:11] LABS: Barbiturates Screen,Urine Negative ng/ml (<200); Benzodiazepines Screen,Urine Negative ng/ml (<200)
[2022-07-08 00:12] LABS: Amphetamine/Metha Screen,Urine Negative ng/ml (<1000)
[2022-07-08 00:13] LABS: Magnesium 1.4 mg/dl (1.6-2.3)
[2022-07-08 00:13] LABS: Cannabinoid Screen,Urine Negative ng/ml (<50); Methadone Screen,Urine Negative ng/ml (<300)
[2022-07-08 00:14] LABS: Cocaine Screen,Urine Negative ng/ml (<300)
[2022-07-08 00:15] LABS: Opiate Screen,Urine Negative ng/ml (<300); Phencyclidine Screen,Urine Negative ng/ml (<25)
[2022-07-08 00:47] LABS: WBC,Urine Occasional #/hpf (0-3)
[2022-07-08 01:01] LABS: Eosinophils % 1 % (0-3); Hypochromasia 1+; Lymphocytes % 26 % (10-50); Monocytes % 5 % (2-9); Neutrophils % 68 % (42-76); Total Cells Counted 100
[2022-07-08 01:02] LABS: Platelet Estimate Normal
[2022-07-08 04:26] LABS: Fetal Membrane Rupture (Rapid) Positive (Negative)
[2022-07-08 05:18] VITALS: BP 111/67; PULSE 104; RESP 18; TEMP 36.8; O2SAT 100
--- NOTE | 2022-07-08 12:57 | EXP.HPDC ---
General Admission date:: 07/07/22 Discharge date: 07/08/22 *Admission Date: 07/07/22 *Chief complaint: leakage of fluid *History of present illness: 26 yo with HARLEEN 08/17/22 care at [facility]-- Dr. Sandy She presented late on the evening of 07/07/22, at 34 1/7 with complaint of large gush of fluid and irregular contractions She denied vaginal bleeding and reported good movement complicated by a history of delivery at 35 wks with G1 , and contractions with this She was being followed by MF at [facility], and most recent cervical length measured 2.5cm She reports that she had been advised by [facility] that she no longer had restrictions for pelvic rest, and it was during intercourse on the evening of 07/07 that she experienced a large gush of fluid Upon presentation to [facility], there was no evidence that she was grossly ruptured, but she was started on empiric ampicillin and zithromax while awaiting amnisure results She was also having regular contractions on TOCO and complaining of pressure, so cervix was checked by nursing staff and she was 3cm dilated No leakage of fluid was noted during cervical exam Amnisure result was negative and patient was admitted for labor She was given started on Magnesum Sulfate, 4gm bolus followed by 2gm/hour She was given Celestone Ampicillin was continued heart tracing remained reassuring, category 1 Contractions responded to tocolysis Approximately 4 hours after admission, she reported another large gush of fluid and amnisure was repeated, with positive result for rupture of membranes The patient was found in the bathroom, stating that she felt the need to poop so her cervix was re-examined even though rupture of membranes had been confirmed, and cervix was still 3cm call or contact centre team leader MFM at (Dr. Yañez) was consulted and accepted transfer of care GA 34 2/7 at time of transfer Magnesium sulfate tocolysis was continued during transport Irregular contractions at time of transport, approximately q 8 minutes [facility] Medical History Heart burn Herpes labialis without complication Palpitations Pelvic pressure in Surgical History History of tonsillectomy Family History Other No significant family history Social History (Updated 07/08/22 @ 01:32 by Tanya Mandujano RN) Smoking Status: Current every day smoker tobacco type: cigarettes packs per day: 1 and e-cigarettes alcohol intake: never substance use type: denies use current occupational status: employed Travel in the last 8 weeks: None adopted: Yes caregiver/support person: Yes housing: house marital status: number of children: 1 Review of Systems Constitutional Constitutional: Reports system reviewed and no additional complaints, except as documented, Denies chills and Denies fever(s) *Gastrointestinal Comments: denies abdominal pain *Genitourinary Comments: + leakage of fluid + contractions denies vaginal bleeding *Musculoskeletal Musculoskeletal: Denies back pain *Neurologic Neurologic: Denies other visual disturbances Exam Data for Last 24 hours Vital signs and Labs for Last 24 Hours: Temp Pulse Resp BP Pulse Ox 98.2 F 104 H 18 111/67 100 07/08/22 05:18 07/08/22 05:18 07/08/22 05:18 07/08/22 05:18 07/07/22 22:45 Laboratory Results - last 24 hr 07/07/22 23:00: Membrane Rupture Negative 07/07/22 23:32: Urine Color Yellow, Urine Appearance Clear, Urine pH 6.5, Ur Specific Otis <= 1.005, Urine Protein Negative, Urine Glucose (UA) Negative, Urine Ketones Negative, Urine Blood 3+, Urine Nitrate Negative, Urine Bilirubin Negative, Urine Urobilinogen 0.2, Ur Leukocyte Esterase Negative, Urine RBC 5-10, Urine WBC Occasional, Ur Squamous Epith Cells 3-5, Urine Ba
== END 2022-07-08 05:59 | disposition short-term general hospital (02) | DRG 832 ==
LOC: OBOUT 23:56 → OB 23:56
PROVIDERS: Admitting Provider Obstetrics & Gynecology; PCP Family Medicine; Referring Provider Obstetrics & Gynecology; Visit Provider Obstetrics & Gynecology
DX: O42.013 Preterm premature rupture of membranes, onset of labor within 24 hours of rupture, third trimester (principal); O26.873 Cervical shortening, third trimester; Z3A.34 34 weeks gestation of pregnancy; Z37.0 Single live birth; O99.334 Smoking (tobacco) complicating childbirth
CPT/HCPCS: 59025; 80305; 81001; 83735; 84112; 85007; 85025; 86850; C9803; J0290; U0003; U0005

== ENCOUNTER 2023-06-07 08:39 | Emergency (ER) | payer MEDICAID, SELFPAY ==
[2023-06-07 08:41] VITALS: BP 118/81; PULSE 77; RESP 18; TEMP 36.7; O2SAT 100; BMI 20.9
--- NOTE | 2023-06-07 09:00 | PC.NURSE ---
DR SUAREZ AT BEDSIDE
--- NOTE | 2023-06-07 09:02 | XR_ITS ---
FINAL REPORT CLINICAL HISTORY: lightheadedness, presyncope smoker x 2 years COMPARISON: None FINDINGS: PA and lateral views of the chest are obtained. There is no prior exam for comparison. The cardiac and mediastinal silhouettes are within normal limits. The lungs are clear. There is no pleural effusion, pneumothorax, or acute osseous abnormality. IMPRESSION: No radiographic evidence of acute cardiac or pulmonary disease. Reviewed, Interpreted and Dictated by Sammi Pereira MD Transcribed by Matilde Ambrosio Authenticated and [facility]
--- NOTE | 2023-06-07 09:06 | HMH.EDGENADL ---
Discharge Plan Disposition Patient Disposition: Home, Self-Care Condition: Good Prescriptions Prescriptions: New meclizine 25 mg tablet 25 mg PO BID PRN (Reason: dizziness) Qty: 14 0RF No Action etonogestrel 68 mg implant 68 mg subdermal ONCE Qty: 1 0RF sertraline 25 mg tablet 25 mg PO DAILY Qty: 30 2RF Nexplanon 68 mg implant 68 mg subdermal metronidazole 500 mg tablet 500 mg PO BID 7 Days Qty: 14 0RF Rx Instructions: Take 1 tablet, twice daily for 7 days. Referrals Follow up/Referrals: Faustino Su MD [Primary Care Provider] - See instructions Activity Restrictions/Add. Instructions Additional Instructions/Restrictions: You were evaluated in the emergency department today. Please pepper picker your prescription and take as needed for symptoms. Follow-up with your primary care provider over the next 3 days. Return to the emergency department for any new or worsening symptoms. Clinical Impressions Clinical Impression: Vertigo, Migraine Instructions Patient Instructions: DI for Vertigo, DI for Headache Discharge ED Provider: Brie Bustamante General Adult HPI General Chief complaint: Dizziness Stated complaint: chest discomfort dizzy Time Seen by Provider: 06/07/23 08:48 Mode of Arrival: Ambulatory Source of Information: Patient Limitations: No Limitations Description of Symptoms (Recalled from ER Triage Doc. by RN): PT WITH C/O SUDDEN ON SET OF NAUSEA, LIGHTHEADEDNESS, HEADACHE, SHORTNESS OF BREATH AND CHEST DISCOMFORT THAT STARTED WHILE STANDING AT WORK History of Present Illness HPI narrative: This patient is a 27-year-old female with a history of migraines presented to the emergency department for evaluation with concern for sudden onset of nausea, lightheadedness, dizziness, headache, and chest tightness that started while she was standing at work. She states she was feeling fine prior to onset of the symptoms just prior to arrival. She denies any recent fevers, chills, cough, congestion, vision changes, numbness, tingling, unilateral weakness, abdominal pain, vomiting, changes in bowel movements, or other concerns. She reports that she has been staying orally hydrated. She denies any other concerns at this time. Related Data Home Medications Medication Instructions Recorded Confirmed etonogestrel 68 mg subdermal 68 mg subdermal 12/25/22 12/25/22 implant (Nexplanon) Previous Rx's Medication Instructions Recorded sertraline 25 mg tablet 25 mg PO DAILY #30 tabs 09/28/22 metronidazole 500 mg tablet 500 mg PO BID 7 days #14 tabs 12/27/22 meclizine 25 mg tablet 25 mg PO BID PRN dizziness #14 tabs 06/07/23 Allergies Allergy/AdvReac Type Severity Reaction Status Date / Time No Known Allergies Allergy Verified 12/25/22 08:24 [facility] Disclaimer: The information contained in this section may have been updated after the patient was seen, as this information can be updated by other users. Medical History Nexplanon in place Palpitations Surgical History History of tonsillectomy Family History Other Coronary artery disease Diabetes Heart attack Hyperlipidemia Hypertension Social History Smoking Status: Current every day smoker tobacco type: cigarettes packs per day: 1 and e-cigarettes alcohol intake: never substance use type: denies use current occupational status: employed Travel in the last 8 weeks: None adopted: Yes caregiver/support person: Yes housing: house marital status: number of children: 1 ROS Obtained: Yes All systems reviewed & no additional complaints except as documented Physical Exam General General appearance: alert and in no apparent distress Head Head exam: atraumatic a
--- NOTE | 2023-06-07 09:25 | ECG_ITS ---
APPROVED REPORT Exam: Resting ECG HR:64 bpm ECG Measurements Heart Rate 64 AXES OH 134 P 67 QRSd 92 QRS 86 QT 399 T 66 QTc 409 Conclusion SINUS RHYTHM NORMAL ECG UNCONFIRMED REPORT Electronically signed by : Haroldo Moser MD 06/07/2023 17:16:36
[2023-06-07 09:32] VITALS: BP 113/76; BP 114/79; PULSE 62; PULSE 67; O2SAT 100; O2SAT 99
[2023-06-07 09:33] VITALS: BP 100/67; BP 113/67; BP 114/79; PULSE 69; PULSE 74
--- NOTE | 2023-06-07 09:36 | PC.NURSE ---
Orthostatics completed. Pt resting in bed. No needs voiced at this time.
[2023-06-07 09:40] LABS: Coronavirus 19, PCR Not Detected (NotDetected); Influenza A, PCR Not Detected (NotDetected); Influenza B, PCR Not Detected (NotDetected)
[2023-06-07 09:48] LABS: Basophils # 0.1 K/mm3 (0-0.2); Basophils % 1.1 % (0.1-2.0); Eosinophils # 0.2 K/mm3 (0.0-0.4); Eosinophils % 2.7 % (0.1-12.0); Hemoglobin 12.1 g/dL (12.2-16.2); Lymphocytes # 2.1 K/mm3 (0.7-4.5); Lymphocytes % 36.8 % (10-50); Mean Corpuscular HGB Conc 31.1 g/dL (31.8-35.4); Mean Platelet Volume 9.7 fl (7.4-10.4); Monocytes # 0.3 K/mm3 (0.1-1.0); Monocytes % 5.3 % (1.7-9.3); Neutrophils # 3.1 K/mm3 (1.8-7.8); Neutrophils % 54.2 % (37.0-80.0); Platelet Count 264 K/mm3 (142-424); Red Blood Count 4.48 M/mm3 (4.20-5.40); Red Cell Distribution Width 14.7 % (11.5-17.5); White Blood Count 5.8 K/mm3 (4.8-10.8)
[2023-06-07 09:57] LABS: Chloride 105 mmol/L (98-107); Potassium 3.5 mmoL/L (3.5-5.1); Sodium 139 mmol/L (136-145)
[2023-06-07 09:59] LABS: Blood Urea Nitrogen 11 mg/dl (7-17); Creatinine Clearance Estimated 101 mL/min (50-200); Estimated Glomerular Filt Rate 120 ml/min (>60); GFR (African American) 145 ML/MIN (>60); HCG Qualitative, Serum Negative (Negative)
[2023-06-07 10:00] LABS: Alanine Aminotransferase 27 U/L (12-78); Albumin Level 4.3 g/dl (3.5-5.0); Albumin/Globulin Ratio 1.6 (1.1-1.8); Alkaline Phosphatase 96 U/L (38-126); Anion Gap 13.5 mEq/L (5-15); Aspartate Amino Transferase 31 U/L (14-36); Bilirubin,Total 0.3 mg/dl (0.2-1.3); Calcium 8.7 mg/dl (8.4-10.2); Carbon Dioxide 24 mmol/L (22.0-30.0); Globulin 2.7 g/dL (1.3-3.2); Glucose 106 mg/dl (74-100)
[2023-06-07 10:00] LABS: Microscopic, Urine URINE MICROSCOPIC (MICROSCOPIC)
[2023-06-07 10:03] LABS: Appearance,Urine CLEAR (Clear); Bilirubin,Urine Negative (Negative); Blood, Urine Negative (Negative); Color,Urine YELLOW (Yellow); Glucose,Urine (UA) Negative (Negative); Ketones,Urine Negative (Negative); Leukocyte Esterase,Urine TRACE (Negative); Nitrate,Urine Negative (Negative); PH,Urine 6.5 (5.0-8.5); Protein,Urine Negative (Negative); Specific Gravity, Urine <= 1.005 (1.005-1.030); Urobilinogen,Urine 0.2 EU/dl (0.2)
--- NOTE | 2023-06-07 10:11 | PC.NURSE ---
Pt gone to RAD via wheelchair
[2023-06-07 10:15] LABS: Bacteria,Urine Trace /lpf; Squamous Epithelial Cell,Urine Occasional #/hpf (0-5); WBC,Urine Occasional #/hpf (0-3)
[2023-06-07 10:28] VITALS: BP 117/75; PULSE 69; O2SAT 100
--- NOTE | 2023-06-07 10:28 | PC.NURSE ---
Pt returned from RAD
[2023-06-07 11:16] VITALS: BP 116/75; PULSE 67; RESP 17; TEMP 36.6; O2SAT 100
== END 2023-06-07 11:16 | disposition home or self-care (01) ==
PROVIDERS: Emergency Provider Emergency Medicine; PCP Family Medicine
DX: G43.909 Migraine, unspecified, not intractable, without status migrainosus (principal); R07.89 Other chest pain; R42 Dizziness and giddiness; F17.210 Nicotine dependence, cigarettes, uncomplicated
CPT/HCPCS: 71046; 80053; 81001; 84703; 85025; 87636; 93005; 96361; 96374; 99285

== ENCOUNTER 2023-07-30 10:41 | Emergency (ER) | payer MEDICAID, SELFPAY ==
[2023-07-30 11:10] VITALS: BP 118/55; PULSE 80; RESP 18; TEMP 36.9; O2SAT 99; BMI 19.8
[2023-07-30 11:18] LABS: Apearance,Urine Clear (Clear); Bilirubin,Urine Negative (Negative); Blood, Urine 3+ (Negative); Color,Urine Dark Yellow (Yellow); Glucose,Urine (UA) Negative (Negative); Ketones,Urine Negative (Negative); PH,Urine 5.5 (5.0-8.5); Protein,Urine Negative (Negative); Specific Gravity, Urine 1.025 (1.005-1.030); UTC Leukocyte Esterase,Urine Trace (Negative); UTC Nitrate,Urine Negative (Negative); Urobilinogen,Urine 0.2 EU/dl (0.2)
[2023-07-30 11:19] LABS: UTC Strep Screen (Rapid) Negative (Negative)
--- NOTE | 2023-07-30 11:19 | EXP.UTC ---
Discharge Plan Disposition Patient Disposition: Home, Self-Care Condition: Good Prescriptions Prescriptions: New cephalexin 500 mg capsule 500 mg PO BID 7 Days Qty: 14 0RF No Action etonogestrel 68 mg implant 68 mg subdermal ONCE Qty: 1 0RF sertraline 25 mg tablet 25 mg PO DAILY Qty: 30 2RF Nexplanon 68 mg implant 68 mg subdermal metronidazole 500 mg tablet 500 mg PO BID 7 Days Qty: 14 0RF Rx Instructions: Take 1 tablet, twice daily for 7 days. meclizine 25 mg tablet 25 mg PO BID PRN (Reason: dizziness) Qty: 14 0RF Referrals Follow up/Referrals: Provider,Referral, MD [Primary Care Provider] - See instructions Activity Restrictions/Add. Instructions Additional Instructions/Restrictions: Make sure to drink plenty of fluids Take medication as prescribed FOllow up with your Family Doctor if no improvement or any worsneing of symptoms Return if needed Clinical Impressions Clinical Impression: UTI (urinary tract infection) Qualifiers: Urinary tract infection type: site unspecified Hematuria presence: with hematuria Qualified Code(s): N39.0 - Urinary tract infection, site not specified Instructions Patient Instructions: Sore Throat, DI for Urinary Tract Infection (UTI) Discharge ED Provider: Noni Porter [facility] General Stated complaint: conestion, cough, sore throat body aches Mode of Arrival: Ambulatory Source of Information: Patient Limitations: No Limitations Time Seen by Provider: 07/30/23 11:19 Description of Symptoms (Recalled from Triage Doc. by RN): PATIENT C/O SORE THROAT, HEADACHE, BODY ACHES, AND STRONG ODOR TO URINE X 2 DAYS HEENT Symptoms (Recalled from RN notes): Yes Resp Symptoms (Recalled from RN notes): No Skin Symptoms (Recalled from RN notes): No MS Symptoms (Recalled from RN notes): No Functional Status (Recalled from RN notes): WNL History of Present Illness Provider Complaint: Patient states that she is currently on her period and has been having sore throat, headaches, body aches, and noticed a strong odor to her urine for the last couple of days States today she wasnt feeling any better so she came in to get checked Related Data Home Medications Medication Instructions Recorded Confirmed etonogestrel 68 mg subdermal 68 mg subdermal 12/25/22 12/25/22 implant (Nexplanon) Previous Rx's Medication Instructions Recorded sertraline 25 mg tablet 25 mg PO DAILY #30 tabs 09/28/22 metronidazole 500 mg tablet 500 mg PO BID 7 days #14 tabs 12/27/22 meclizine 25 mg tablet 25 mg PO BID PRN dizziness #14 tabs 06/07/23 cephalexin 500 mg capsule 500 mg PO BID 7 days #14 caps 07/30/23 Allergies Allergy/AdvReac Type Severity Reaction Status Date / Time No Known Allergies Allergy Verified 12/25/22 08:24 Worker's Comp Is this a Worker's Comp case?: No [facility] Disclaimer: The information contained in this section may have been updated after the patient was seen, as this information can be updated by other users. Medical History Nexplanon in place Palpitations Surgical History History of tonsillectomy Family History Other Coronary artery disease Diabetes Heart attack Hyperlipidemia Hypertension Social History Smoking Status: Current every day smoker tobacco type: cigarettes packs per day: 1 and e-cigarettes alcohol intake: never substance use type: denies use current occupational status: employed Travel in the last 8 weeks: None adopted: Yes caregiver/support person: Yes housing: house marital status: number of children: 1 ROS Obtained: Yes All systems reviewed & no additional complaints except as documented and Yes Systems reviewed as appropriate & no additional complaints
[2023-07-30 11:22] VITALS: BP 118/55; PULSE 80; RESP 18; TEMP 36.9; O2SAT 99
== END 2023-07-30 11:48 | disposition home or self-care (01) ==
PROVIDERS: Emergency Provider Nurse Practitioner
DX: N39.0 Urinary tract infection, site not specified (principal); B96.89 Other specified bacterial agents as the cause of diseases classified elsewhere; R07.0 Pain in throat; R51.9 Headache, unspecified; R09.81 Nasal congestion; R05.9 Cough, unspecified; F17.210 Nicotine dependence, cigarettes, uncomplicated
CPT/HCPCS: 81003; 87086; 87880; 99212; 99214; G0463

== ENCOUNTER 2023-08-21 19:19 | Emergency (ER) | payer MEDICAID, SELFPAY ==
[2023-08-21 19:35] VITALS: BP 114/71; PULSE 100; RESP 18; TEMP 37.8; O2SAT 98; BMI 19.1
--- NOTE | 2023-08-21 19:43 | EXP.UTC ---
Discharge Plan Disposition Patient Disposition: Home, Self-Care Condition: Good Prescriptions Prescriptions: New ondansetron 4 mg Tablet,Disintegrating 4 mg PO Q8H PRN (Reason: Nausea) Qty: 12 0RF No Action etonogestrel 68 mg implant 68 mg subdermal ONCE Qty: 1 0RF sertraline 25 mg tablet 25 mg PO DAILY Qty: 30 2RF metronidazole 500 mg tablet 500 mg PO BID 7 Days Qty: 14 0RF Rx Instructions: Take 1 tablet, twice daily for 7 days. meclizine 25 mg tablet 25 mg PO BID PRN (Reason: dizziness) Qty: 14 0RF Referrals Follow up/Referrals: Provider,Referral, MD [Primary Care Provider] - See instructions Activity Restrictions/Add. Instructions Additional Instructions/Restrictions: Drink plenty of fluids. Take tylenol or ibuprofen for pain or fever. Take the medications as directed. Follow up with your regular doctor. GO TO THE ER FOR ANY WORSENING SYMPTOMS Clinical Impressions Clinical Impression: Acute viral syndrome Stand Alone Forms Stand Alone Forms: Work/School Release Instructions Patient Instructions: DI for Viral Syndrome Discharge ED Provider: Akbar Chin [facility] General Stated complaint: fever, chills, body aches Time Seen by Provider: 08/21/23 19:43 History of Present Illness Provider Complaint: She states that for the past 1 day she has had fever, chills, and body aches. She denies cough and congestion. She denies any n/v/d. Related Data Previous Rx's Medication Instructions Recorded sertraline 25 mg tablet 25 mg PO DAILY #30 tabs 09/28/22 metronidazole 500 mg tablet 500 mg PO BID 7 days #14 tabs 12/27/22 meclizine 25 mg tablet 25 mg PO BID PRN dizziness #14 tabs 06/07/23 ondansetron 4 mg disintegrating 4 mg PO Q8H PRN Nausea #12 tabs 08/21/23 tablet Allergies Allergy/AdvReac Type Severity Reaction Status Date / Time No Known Allergies Allergy Verified 08/21/23 19:49 [facility] Disclaimer: The information contained in this section may have been updated after the patient was seen, as this information can be updated by other users. Medical History Nexplanon in place Palpitations Surgical History History of tonsillectomy Family History Other Coronary artery disease Diabetes Heart attack Hyperlipidemia Hypertension Social History Smoking Status: Current every day smoker tobacco type: cigarettes packs per day: 1 and e-cigarettes alcohol intake: never substance use type: denies use current occupational status: employed Travel in the last 8 weeks: None adopted: Yes caregiver/support person: Yes housing: house marital status: number of children: 1 ROS Obtained: Yes All systems reviewed & no additional complaints except as documented Constitutional Constitutional: Reports chills and Reports fever(s) Eyes Eyes: Denies eye discharge ENT Ears, Nose, Mouth, and Throat: Reports as per HPI Cardiovascular Cardiovascular: Denies chest pain Respiratory Respiratory: Denies chest congestion and Reports cough Gastrointestinal Gastrointestingal: Reports nausea; Denies abdominal pain, constipation, cramping, diarrhea or vomiting Musculoskeletal Musculoskeletal: Denies arthralgias Integumentary/Breasts Skin/Breast: Denies rash Neurologic Neurologic: Denies paresthesias Physical Exam General General appearance: alert and in no apparent distress Head Head exam: atraumatic, normocephalic and normal inspection Eye Eye exam: Present normal appearance, PERRL and EOMI ENT ENT exam: Present normal exam, normal oropharynx, mucous membranes moist, TM's normal bilaterally and normal external ear exam Neck Neck exam: Present normal inspection, full ROM and trachea midline; Absent meningismus or l
[2023-08-21 19:50] LABS: UTC Influenza A Antigen Negative (Negative); UTC Influenza B Antigen Negative (Negative)
[2023-08-21 20:08] VITALS: BP 114/71; PULSE 100; RESP 18; TEMP 37.3; O2SAT 98
== END 2023-08-21 20:08 | disposition home or self-care (01) ==
PROVIDERS: Emergency Provider Nurse Practitioner Family
DX: R05.9 Cough, unspecified (principal); R50.9 Fever, unspecified; M79.18 Myalgia, other site; B34.9 Viral infection, unspecified; F17.210 Nicotine dependence, cigarettes, uncomplicated; R11.0 Nausea
CPT/HCPCS: 87635; 87804; 99212; 99214; G0463

== ENCOUNTER 2023-11-29 14:47 | Emergency (ER) | payer BC, SELFPAY ==
[2023-11-29 15:10] VITALS: BP 111/58; PULSE 106; RESP 19; TEMP 36.8; O2SAT 98; BMI 20.7
[2023-11-29 15:32] LABS: UTC Strep Screen (Rapid) Negative (Negative)
--- NOTE | 2023-11-29 15:33 | EXP.UTC ---
Discharge Plan Disposition Patient Disposition: Home, Self-Care Condition: Good Prescriptions Prescriptions: New azithromycin [Zithromax Z-Wilton] 250 mg tablet See Rx Instructions .ROUTE .COMPLEX 5 Days Qty: 6 0RF Rx Instructions: For 250 mg dose pack: take 500 mg today (day 1), then 250 mg for 4 days (days 2-5) methylprednisolone [Medrol (Wilton)] 4 mg tablets,dose pack See Rx Instructions .Route .COMPLEX 6 Days Qty: 21 0RF Rx Instructions: taper pack; dftnioxogipkidn-dgftxumph-[id number] [Bromfed DM] 2-30-10 mg/5 mL syrup 10 ml PO Q6H PRN (Reason: cold symptoms) Qty: 200 0RF Referrals Follow up/Referrals: Provider,Referral, MD [Primary Care Provider] - See instructions Activity Restrictions/Add. Instructions Additional Instructions/Restrictions: *Monitor Temp, Over the counter Motrin or Tylenol as directed/as needed Tylenol every 4 hours and Motrin every 6 hours (as long as your family doctor has told you that you can take it) for fever or pain. and straight to ER if unable to lower temp less than 101.0 after medication given *Warm salt water gargles may help to soothe the throat *Throat Lozenges? *Warm fluids like tea with honey may help to soothe the throat? *Sleep elevated *Humidifier/Vaporizer Your throat swab was sent for culture. Those results are typically sent to your primary care. Be sure to follow up in 2-3 days with your family doctor/primary care physician if no improvement so they can review those result and treat if necessary. If you don?t have a primary care doctor, I recommend you get one but in the mean time, you will have to return to a walk in clinic Follow up IMMEDIATELY for new or worsening symptoms or no Noticeable improvement over the next 48-72 hours. 911 for difficulty breathing or swallowing Clinical Impressions Clinical Impression: Pharyngitis Qualifiers: Pharyngitis/tonsillitis etiology: unspecified etiology Qualified Code(s): J02.9 - Acute pharyngitis, unspecified Instructions Patient Instructions: Sore Throat, Cough Discharge ED Provider: Noni Porter [facility] HPI General Stated complaint: SYED, sore throat Mode of Arrival: Ambulatory Source of Information: Patient Limitations: No Limitations Time Seen by Provider: 11/29/23 15:33 Description of Symptoms (Recalled from Triage Doc. by RN): PATIENT C/O COUGH AND SORE THROAT SINCE YESTERDAY HEENT Symptoms (Recalled from RN notes): Yes Resp Symptoms (Recalled from RN notes): Yes Skin Symptoms (Recalled from RN notes): No MS Symptoms (Recalled from RN notes): No Functional Status (Recalled from RN notes): WNL History of Present Illness Provider Complaint: Patient states that she started yesterday with severe sore throat and dry cough states today she woke up and had lost her voice and her throat was hurting worse so she came in to get checked worried that she may have strep throat Related Data Previous Rx's Medication Instructions Recorded azithromycin 250 mg tablet See Rx Instructions PO .COMPLEX 5 11/29/23 (Zithromax Z-Wilton) days #6 tabs zityjjhcpkydblh-yowrekqkaasxcwe-XZ 10 ml PO Q6H PRN cold symptoms 11/29/23 2 mg-30 mg-10 mg/5 mL oral syrup #200 mL (Bromfed DM) methylprednisolone 4 mg tablets in See Rx Instructions .Route 11/29/23 a dose pack (Medrol (Wilton)) .COMPLEX 6 days #21 tabs Allergies Allergy/AdvReac Type Severity Reaction Status Date / Time No Known Allergies Allergy Verified 08/21/23 19:49 Worker's Comp Is this a Worker's Comp case?: No [facility] Disclaimer: The information contained in this section may have been updated after the patient was seen, as this information can be updated by other users. Medical History Nexplanon in place Palpitations Surgical History History of tonsillectomy Family History Other Coronary artery disease Diabetes Heart attack Hyperlipidemia Hypertension Social History Smoking Status: Current every day smoker tobacco type: cigarettes packs per day: 1 and e-cigarettes alcohol intake: never substance use type: denies use current occupational status: employed Travel in the last 8 weeks: None adopted: Yes caregiver/support person: Yes housing: house marital status: number of children: 1 ROS Obtained: Yes All systems reviewed & no additional complaints except as documented and Yes Systems reviewed as appropriate & no additional complaints except as documented Constitutional Constitutional: Reports system reviewed and no additional complaints, except as documented and Reports as per HPI ENT Ears, Nose, Mouth, and Throat: Reports system reviewed and no additional complaints, except as documented, Reports as per HPI and Reports sore throat Cardiovascular Cardiovascular: Reports system reviewed and no additional complaints, except as documented and Reports as per HPI Respiratory Respiratory: Reports system reviewed and no additional complaints, except as documented, Reports as per HPI, Denies shortness of breath, Reports cough, Denies pain with cough and Denies wheezing Gastrointestinal Gastrointestingal: Reports system reviewed and no additional complaints, except as documented and as per HPI Allergic/Immunologic Allergic/Immunologic: Denies wheezing Physical Exam General General appearance: alert and in no apparent distress ENT ENT exam: Present mucous membranes moist Expanded ENT Exam Throat exam: Present other (Pharygeal erythema noted with PND) Respiratory Respiratory exam: Present normal lung sounds bilaterally; Absent respiratory distress or wheezes Cardiovascular Cardiovascular exam: Present regular rate, normal rhythm and normal heart sounds Neurological Exam Neurological exam: Present alert, oriented X3 and normal gait Medical Decision Making Dony Inquiry Pt receiving controlled substance: No Dony was queried for this patient: No Vital Signs: 11/29/23 15:10 Temperature 98.3 F Temperature Source Oral Pulse Rate [Left Brachial] 106 H Respiratory Rate 19 Blood Pressure [Left Arm] 111/58 L Blood Pressure Mean [Left Arm] 75 Blood Pressure Source [Left Arm] Automatic Cuff Blood Pressure Position [Left Arm] Sitting 02 Sat by Pulse Oximetry 98 Oxygen Delivery Method Room Air Lab Data Lab results reviewed: Yes I reviewed the patient's lab results. Lab Results 11/29/23 15:21: Strep Scn Rapid Clinic Negative Orders (Tests/Meds): ORDERS Category Date Time Status Strep Screen Confirmation Stat Micro 11/29/23 15:21 Received
[2023-11-29 15:44] VITALS: BP 111/58; PULSE 106; RESP 19; TEMP 36.8; O2SAT 98
== END 2023-11-29 15:59 | disposition home or self-care (01) ==
PROVIDERS: Emergency Provider Nurse Practitioner
DX: J02.9 Acute pharyngitis, unspecified (principal); R05.9 Cough, unspecified; F17.210 Nicotine dependence, cigarettes, uncomplicated
CPT/HCPCS: 87880; 99212; 99214; G0463